=== PATIENT | female | born 1975 | race Caucasian/White ===

== ENCOUNTER 2016-08-31 08:35 | Inpatient (IN) | payer BC ==
[~2016-08-31] VITALS: Ht 165.1 cm; Wt 58.6 kg
[~2016-08-31 08:35] MED LIST: OXYCODONE HCL10 M1 PO; TRAMADOL HCL50 MG PO
[2016-08-31 09:45] VITALS: BP 120/70
[2016-08-31] MEDS ORDERED: RESTORIL15 MG PO (09:58)
[2016-08-31 10:12] LABS: BILIRUBIN NEGATIVE (NEGATIVE); BLOOD NEGATIVE (NEGATIVE); CLARITY CLEAR (CLEAR); COLOR YELLOW (YELLOW); GLUCOSE NEGATIVE (NEGATIVE); KETONE 1+ (NEGATIVE); LEUKO ESTERASE NEGATIVE (NEGATIVE); NITRITE NEGATIVE (NEGATIVE); PH 6.5 (5.0-9.0); PROTEIN NEGATIVE (NEGATIVE); SPECIFIC GRAVITY <= 1.005 (1.005-1.030); UROBILINOGEN 0.2 E.U./dl (0.2-1.0)
[2016-08-31 10:16] LABS: HEMOGLOBIN 14.1 g/dl (12.0-16.0); PROTHROMBIN TIME 10.3 SECONDS (9.0-12.4); RED BLOOD COUNT 4.48 10*6/uL (4.10-5.10); WHITE BLOOD COUNT 6.8 10*3/uL (4.8-10.8)
[2016-08-31 10:17] LABS: BASO % 0.4 % (0.0-1.0); EOS % 0.6 % (1.0-4.0); MEAN CELL VOLUME 93.8 fl (81.0-99.0); MEAN CORPUSCULAR HGB 31.5 pg (27.0-31.0); MEAN CORPUSCULAR HGB CONC 33.6 g/dl (33.0-37.0); MEAN PLATELET VOLUME 10.8 fl (9.6-12.3); MONO # 0.2 10*3/uL (0.1-1.0); MONO % 3.5 % (3.0-9.0); NEUT # 5.5 10*3/uL (2.3-7.9); NEUT % 81.2 % (47.0-73.0); PLATELET COUNT AUTOMATED 231 10*3/uL (130-400); RED CELL DISTRI WIDTH 12.3 % (0-14.5)
[2016-08-31 10:20] LABS: ALBUMIN 4.2 gm/dl (3.1-4.5); ALKALINE PHOSPHATASE 63 U/L (45-117); BILIRUBIN, TOTAL 0.4 mg/dl (0.2-1.0); BUN 10 mg/dl (7-24); CARBON DIOXIDE 27 mmol/L (21-32); CHLORIDE 111 mmol/L (98-107); EST GLOM FILT AFRICAN AMERICAN > 60 ml/min; GLUCOSE 94 mg/dL (65-99); POTASSIUM 3.9 mmol/L (3.5-5.1); SGOT/AST 15 IU/L (3-35); SGPT/ALT 21 U/L (12-78); SODIUM 143 mmol/L (136-145); TOTAL PROTEIN 7.7 gm/dL (6.4-8.2)
[2016-08-31 10:25] LABS: URINE REFLEX COMMENT NO (NO)
[2016-08-31 10:30] LABS: URINE AMPHETAMINES < 1000 (1000ng/ml); URINE BARBITURATES < 200 (200ng/ml); URINE COCAINE < 300 (300ng/ml)
[2016-08-31 12:00] VITALS: BP 95/54
[2016-08-31 16:00] VITALS: BP 109/70
[2016-08-31 20:00] VITALS: BP 118/73
[2016-09-01] VITALS: BP 101/65
[2016-09-01 08:00] VITALS: BP 92/64
[2016-09-01 11:56] VITALS: BP 110/48
[2016-09-01 15:56] VITALS: BP 117/84
[2016-09-01 20:00] VITALS: BP 89/60
[2016-09-02 00:44] VITALS: BP 110/54
[2016-09-02 08:00] VITALS: BP 98/66
[2016-09-02 12:00] VITALS: BP 97/66
[2016-09-02 16:00] VITALS: BP 103/66
[2016-09-02 20:00] VITALS: BP 110/65
[2016-09-03 00:07] VITALS: BP 103/69
[2016-09-03 06:19] LABS: BASO % 0.7 % (0.0-1.0); EOS # 0.5 10*3/uL (0.0-0.4); EOS % 7.3 % (1.0-4.0); HEMATOCRIT 38.1 % (37.0-47.0); HEMOGLOBIN 12.3 g/dl (12.0-16.0); LYMPH # 2.7 10*3/uL (1.3-4.4); LYMPH % 43.4 % (27.0-41.0); MEAN CELL VOLUME 96.2 fl (81.0-99.0); MEAN CORPUSCULAR HGB 31.1 pg (27.0-31.0); MEAN CORPUSCULAR HGB CONC 32.3 g/dl (33.0-37.0); MEAN PLATELET VOLUME 11.3 fl (9.6-12.3); MONO # 0.6 10*3/uL (0.1-1.0); MONO % 9.5 % (3.0-9.0); NEUT # 2.4 10*3/uL (2.3-7.9); NEUT % 38.8 % (47.0-73.0); PLATELET COUNT AUTOMATED 207 10*3/uL (130-400); RED BLOOD COUNT 3.96 10*6/uL (4.10-5.10); RED CELL DISTRI WIDTH 12.2 % (0-14.5); WHITE BLOOD COUNT 6.1 10*3/uL (4.8-10.8)
[2016-09-03 06:40] LABS: EST GLOM FILT AFRICAN AMERICAN > 60 ml/min
[2016-09-03 08:00] VITALS: BP 118/60
[2016-09-03] MEDS ORDERED: METHOCARBAMOL750 M1 PO ×2 (09:37→10:25)
[2016-09-03] MEDS ORDERED: ATARAX,VISTARIL50 MG PO ×2 (09:37→10:25)
[2016-09-03] MEDS ORDERED: ZOFRAN 4 MG ED2 TAB PO ×2 (09:37→10:25)
== END 2016-09-03 11:04 | disposition home or self-care (01) | DRG 897 ==
LOC: 5E 08:35 → 4E 09:33
PROVIDERS: Internal Medicine
DX: F11.23 Opioid dependence with withdrawal (principal); F41.9 Anxiety disorder, unspecified; G89.29 Other chronic pain; M54.9 Dorsalgia, unspecified; Z83.3 Family history of diabetes mellitus; Z71.6 Tobacco abuse counseling; G47.00 Insomnia, unspecified

== ENCOUNTER → 2019-05-22 | Outpatient (CLI) | payer BC ==
[~2019-05-22] MED LIST changes: +ATARAX,VISTARIL50 MG PO; +METHOCARBAMOL750 M1 PO; +RESTORIL15 MG PO; +ZOFRAN 4 MG ED2 TAB PO
== END | disposition home or self-care (01) ==
LOC: US 11:01
DX: R60.0 Localized edema (principal)

== ENCOUNTER → 2020-03-17 | Outpatient (CLI) | payer BC | END | disposition home or self-care (01) | LOC: COVID19 11:18 | PROVIDERS: ATTEND Internal Medicine | DX: Z20.828 Contact with and (suspected) exposure to other viral communicable diseases (principal) ==

== ENCOUNTER → 2021-05-09 | Outpatient (CLI) | payer BC | END | disposition home or self-care (01) | LOC: RAD 05-02 13:30 | PROVIDERS: ATTEND Internal Medicine | DX: M85.88 Other specified disorders of bone density and structure, other site (principal) ==

== ENCOUNTER 2022-08-14 12:52 | Emergency (ER) | payer BC ==
[~2022-08-14] VITALS: Ht 165.1 cm; Wt 81.6 kg
[2022-08-14 14:45] VITALS: BP 140/92
[2022-08-14] MEDS ORDERED: Motrin,Rufen800 MG PO (15:00)
[2022-08-14] MEDS ORDERED: PERCOCET 5-3251 EACH PO (15:00)
== END 2022-08-14 15:03 | disposition home or self-care (01) ==
LOC: ED 12:52
DX: S20.212A Contusion of left front wall of thorax, initial encounter (principal); W18.2XXA Fall in (into) shower or empty bathtub, initial encounter; Y93.89 Activity, other specified; Y92.89 Other specified places as the place of occurrence of the external cause; Y99.8 Other external cause status